=== PATIENT | male | born 1950 | race Caucasian/White ===

== ENCOUNTER 2019-12-19 09:49 | Outpatient (CLI) | payer OTHER, SELFPAY ==
--- NOTE | ~2019-12-19 | XR_ITS ---
EXAMINATION: XR lumbar spine 2-3V DATE: 12/19/2019 10:15 INDICATION: Low back pain. TECHNIQUE: 3 views of lumbar spine were obtained. COMPARISON: CT abdomen and pelvis 03/15/2009, lumbar spine radiographs 07/17/2015 FINDINGS: There is 4 degrees dextrocurvature of lumbar spine. There is mild chronic anterior wedging of T12 and L1 vertebral bodies, likely physiologic. Intervertebral disc heights are normal. There are endplate osteophytes at all levels. There is multilevel mild facet joint osteoarthritis. IMPRESSION: 1. Mild lumbar spondylosis. Reviewed, dictated and finalized at location A. IMPRESSION: 1. Mild lumbar spondylosis.
--- NOTE | ~2019-12-19 | XR_ITS ---
EXAMINATION: XR abdomen/kub 1V DATE: 12/19/2019 10:15 INDICATION: Left flank pain. TECHNIQUE: A supine view of the abdomen on 2 radiographs was obtained. COMPARISON: CT abdomen and pelvis 03/15/2009 FINDINGS: There are no dilated loops of bowel. The kidneys are obscured by bowel. A 6 mm calcificatio n overlies right kidney and colon. IMPRESSION: 1. 6 mm calcification overlying right kidney and colon that may be a kidney stone or colonic stool. Reviewed, dictated and finalized at location A. IMPRESSION: 1. 6 mm calcification overlying right kidney and colon that may be a kidney sto ne or colonic stool.
== END 2019-12-19 09:50 | disposition home or self-care (01) ==
LOC: ANHIMG 09:55
PROVIDERS: PCP Family Medicine; Visit Provider Nurse Practitioner Family
DX: R10.9 Unspecified abdominal pain (principal); M54.5 Low back pain; M47.816 Spondylosis without myelopathy or radiculopathy, lumbar region; R93.5 Abnormal findings on diagnostic imaging of other abdominal regions, including retroperitoneum
CPT/HCPCS: 72100; 74018

== ENCOUNTER 2022-04-22 09:54 | Outpatient (CLI) | payer OTHER, SELFPAY ==
--- NOTE | ~2022-04-22 | US_ITS ---
EXAMINATION: US venous doppler [facility] DATE: 04/22/2022 10:24 INDICATION: Left lower limb warmth and erythema TECHNIQUE: Grayscale ultrasound images without and with compression and Doppler ultrasound images of the left lower extremity veins were obtained. COMPARISON: None. FINDINGS: The visualized portions of left common femoral vein, profunda (deep) femoral vein, femoral vein, popl iteal vein, peroneal veins, posterior tibial veins, gastrocnemius vein and greater saphenous vein out flow are patent. IMPRESSION: 1. No deep venous thrombosis in the left lower limb. Reviewed, dictated and finalized at location A.
== END 2022-04-22 09:55 | disposition home or self-care (01) ==
PROVIDERS: PCP Family Medicine; Visit Provider Nurse Practitioner Family
DX: M79.89 Other specified soft tissue disorders (principal); R23.8 Other skin changes
CPT/HCPCS: 93971

== ENCOUNTER 2023-04-09 10:11 | Outpatient (CLI) | payer OTHER, SELFPAY ==
[2023-04-09 11:35] LABS: Basophils Percent Auto 0.7 % (0.2-1.2); Eosinophils Absolute Auto 0.2 K/mm3 (0-0.3); Eosinophils Percent Auto 3.6 % (0-4.4); Hematocrit 42.6 % (42.0-52.0); Hemoglobin 14.2 g/dL (14.0-18.0); Immature Granulocyte Absolute 0.04 K/mm3 (0.00-0.031); Immature Granulocyte Percent A 0.7 % (0-0.5); Lymphocytes Absolute Auto 1.14 K/mm3 (0.9-3.2); Lymphocytes Percent Auto 19.5 % (18.3-44.2); Mean Corpuscular HGB Conc 33.3 g/dl (32-36); Mean Corpuscular Hemoglobin 32.3 pg (26-34); Mean Corpuscular Volume 96.8 fl (80-100); Mean Platelet Volume 9.4 fl (7.4-10.4); Monocytes Absolute Auto 0.4 K/mm3 (0.1-0.6); Monocytes Percent Auto 7.3 % (2.6-8.5); Neutrophils Percent Auto 68.2 % (45.5-73.1); Platelet Count Result 204 k/mm3 (150-375); Red Cell Distribution Width 11.8 % (11.5-14.5); White Blood Count 5.9 K/mm3 (4.5-10.0)
[2023-04-09 11:56] LABS: Alanine Aminotransferase 54 U/L (6-50); Albumin Level 4.4 g/dL (3.5-5.1); Alkaline Phosphatase 35 U/L (38-126); Anion Gap 16 mmol/L (8-16); Aspartate Amino Transferase 66 U/L (17-59); Bilirubin,Total 0.7 mg/dL (0.2-1.3); Blood Urea Nitrogen 36 mg/dL (9-20); Calcium 10.6 mg/dL (8.4-10.2); Carbon Dioxide 31 mmol/L (22-30); Chloride 92 mmol/L (98-107); Cholesterol 164 mg/dL (0-200); Estimated Glomerular Filt Rate 27; Glucose 91 mg/dL (65-110); HDL Direct 29 mg/dL; Potassium 3.8 mmol/L (3.4-5.0); Sodium 139 mmol/L (137-145); Triglycerides 252 mg/dL (<150)
[2023-04-09 12:07] LABS: LDL Cholesterol Direct 88 mg/dL
[2023-04-09 12:29] LABS: Hemoglobin A1C 5.2 % (<5.7)
== END 2023-04-09 10:12 | disposition home or self-care (01) ==
LOC: ANHGOSHLAB 10:14
PROVIDERS: PCP Family Medicine; Visit Provider Nurse Practitioner Family
DX: E78.5 Hyperlipidemia, unspecified (principal); I10 Essential (primary) hypertension; Z13.29 Encounter for screening for other suspected endocrine disorder; N25.81 Secondary hyperparathyroidism of renal origin; Z12.5 Encounter for screening for malignant neoplasm of prostate
CPT/HCPCS: 36415; 80053; 80061; 83036; 84153; 84443; 85025; G0103

== ENCOUNTER 2023-04-10 15:06 | Outpatient (CLI) | payer OTHER, SELFPAY ==
[2023-04-10 18:59] LABS: Hepatitis B Surface Antigen Negative (Negative)
[2023-04-10 19:06] LABS: HAV RESULT Negative (Negative); Hepatitis B Core IgM Result Negative (Negative)
[2023-04-10 19:17] LABS: Hepatitis C Virus Antibody Negative (Negative)
== END 2023-04-10 15:07 | disposition home or self-care (01) ==
LOC: ANHGOSHLAB 15:07
PROVIDERS: PCP Family Medicine; Visit Provider Nurse Practitioner Family
DX: R74.8 Abnormal levels of other serum enzymes (principal)
CPT/HCPCS: 36415; 80074

== ENCOUNTER 2023-05-25 12:36 | Emergency (ER) | payer OTHER, SELFPAY ==
[2023-05-25 12:46] VITALS: BP 138/98; PULSE 74; RESP 16; TEMP 36.3; O2SAT 98
--- NOTE | 2023-05-25 12:59 | ED.DENTAL ---
HPI - Dental/Oral General Chief complaint: Dental/Oral Stated complaint: Inflammation in face Time Seen by Provider: 05/25/23 12:59 Source: patient, RN notes reviewed and old records reviewed Mode of arrival: ambulatory Limitations: no limitations History of Present Illness HPI Narrative: 72 year old male presents to [facility] care with complaints of left side of face swelling and pain to the left side of his nose into his left face since early this morning. Patient reports that he has dental problems for a long time with many missing and broken off teeth. Patient has redness and swelling to his left upper gum with redness, no drainage noted. Patient reports that he has taken Ibuprofen and also used Oragel to his upper left gum. Patient reports that his pain is 3/10. Patient states that his last episode of dental problems was 6-7 years ago. MD Complaint: tooth injury (dental pain) Onset (ago): day(s) (early this morning at 0200) Treatment prior to arrival: oral analgesic (Ibuprofen) and other (oragel) Related Data Home Medications Medication Instructions Recorded Confirmed aspirin 81 mg tablet,delayed 81 mg PO DAILY 07/18/19 05/25/23 release calcium carbonate 500 mg calcium 500 mg PO DAILY 07/18/19 05/25/23 (1,250 mg) chewable tablet (Calcium 500) cholecalciferol (vitamin D3) 50 2,000 unit PO DAILY 07/18/19 05/25/23 mcg (2,000 unit) tablet mecobalamin (vitamin B12) 1,000 1,000 mcg sublingual DAILY 07/18/19 05/25/23 mcg disintegrating tablet,sublingual fenofibrate 160 mg tablet 160 mg PO DAILY 04/09/23 05/25/23 hydrochlorothiazide 12.5 mg tablet 12.5 mg PO DAILY 04/09/23 05/25/23 Allergies Allergy/AdvReac Type Severity Reaction Status Date / Time latex Allergy Mild ITCHING,CAITLIN Verified 05/25/23 13:18 H Bumble Bee Allergy Severe Anaphylactic Uncoded 05/25/23 13:18 Shock Review of Systems Review of Systems: CONSTITUTIONAL: Denies fever, chills, or sweats. ENT: Denies rhinorrhea, congestion, sore throat, or otalgia. Reports dental pain to his left upper gum radiating to the left side of his face with some swelling. CARDIOVASCULAR: Denies chest pain, palpitations, or edema. RESPIRATORY: Denies cough or dyspnea. SKIN: Denies rash or itching. MUSCULOSKELETAL: Denies myalgia. NEUROLOGIC: Denies headache All systems reviewed & are unremarkable except as noted in HPI and below PMFSH Past Medical History Medical History (Updated 05/25/23 @ 13:16 by Tata Alcocer NP) Basal cell carcinoma (~03/2018) removed from calf CAD (coronary artery disease) CKD (chronic kidney disease) stage 3, GFR 30-59 ml/min COPD (chronic obstructive pulmonary disease) Former smoker Hyperlipidemia Hypertension Kidney stones Left flank pain Low Back Pain Normal colonoscopy [id number]? Patient reported. Dr unknown. Osteoarthritis of knees, bilateral Retinal embolus, right eye Vitamin D deficiency Surgical History Surgical History History of heart artery stent (~07/2016) x2 - 07/2016 and 08/2016 History of repair of left rotator cuff (~12/2018) History of repair of right rotator cuff 2000 Family History Family History Mother Hypertension Father Family history of lung cancer Other Family history of alcoholism Social History Social History Social History: Lives with . Has 3 children and 1 grandchild Caffeine-soda Smoking status: Former smoker Second hand tobacco smoke exposure: Yes Smoking end date: 08/24/78 Alcohol intake: current Drinks per week: 14 Alcohol use details: bourbon Substance use: never Substance use type: does not use Lack of Transportation: No Lack of Food: Never True Current Housing: I Have Housing Concerned About Future Housing: No Difficulty Paying Gas/Electric Bills: No Diffi
== END 2023-05-25 13:24 | disposition home or self-care (01) ==
PROVIDERS: Emergency Provider Registered Nurse; PCP Nurse Practitioner Family
DX: K04.7 Periapical abscess without sinus (principal); I25.10 Atherosclerotic heart disease of native coronary artery without angina pectoris; I12.9 Hypertensive chronic kidney disease with stage 1 through stage 4 chronic kidney disease, or unspecified chronic kidney disease; N18.30 Chronic kidney disease, stage 3 unspecified; E78.5 Hyperlipidemia, unspecified; J44.9 Chronic obstructive pulmonary disease, unspecified; Z79.82 Long term (current) use of aspirin; Z79.899 Other long term (current) drug therapy; Z87.891 Personal history of nicotine dependence
CPT/HCPCS: 99213; G0463

== ENCOUNTER 2025-03-10 00:53 | Day surgery (SDC) | payer OTHER, SELFPAY ==
[2025-02-28 08:41] VITALS: BMI 31.9
--- OUTSIDE RECORDS SUMMARY | 2025-03-10 00:56 | XMS_ITS | Clinical Summary ---
Author Organization [facility] Address [address] [place] [address] Care Team Providers Care Director Of Casework Name Role Phone Provider, None Primary Care Provider Unavailabl e Allergies Active Allergy Reactions Criticality Noted Date Comments Bee Venom Anaphylaxis High 05/07/2021 Reaction: ANAPHYLAXIS, Medications aspirin EC 81 MG Tablet Delayed Response Take 1 Tablet by mouth daily. 10/29/2016 Active atorvastatin (LIPITOR) 40 MG Tablet Take 40 mg by mouth daily. 08/21/2017 Active hydroCHLOROthia zide 12.5 MG Tablet 04/21/2021 Active cloNIDine (CATAPRES) 0.2 MG Tablet Take 0.2 mg by mouth. 07/15/2017 Active Cholecalciferol (D2000 Ultra Strength) 2000 UNIT Capsule Take 2,000 Units by mouth. Active diclofenac (VOLTAREN) 75 MG Tablet Delayed Response Take 75 mg by mouth. 04/21/2021 Active doxazosin (CARDURA) 1 MG Tablet Take 1 mg by mouth. 04/21/2021 Active fluticasone-trinity meterol (Advair Diskus) 250-50 MCG/ACT AEROSOL POWDER, BREATH ACTIVATED take 1 Puff by inhalation. 03/24/2021 Active folic acid (FOLVITE) 400 MCG Tablet Take 400 mcg by mouth. Active losartan (COZAAR) 50 MG Tablet Take 50 mg by mouth. 04/19/2021 Active verapamil CR (VERELAN) 240 MG CAPSULE SR 24 HR Take 240 mg by mouth. 04/19/2021 Active traMADol (ULTRAM) 50 MG TabletIndicatio ns:Dental infection Take 1 Tablet by mouth every 6 hours as needed for Moderate or more severe pain. 12 Tablet 06/04/2024 Active Social History Tobacco Use Types Packs/Day Years Used Date Smoking Tobacco: Former Cigarettes Passive Smoke Exposure: Never Smokeless Tobacco: Never Tobacco Cessation:Counseling Given: Not Answered Sex and Gender Information Value Date Recorded Sex Assigned at Not on file Legal Sex Male 2:38 PM CDT Gender Identity Not on file Sexual Orientation Not on file Last Filed Vital Signs Vital Sign Reading Time Taken Comments Blood Pressure 132/88 06/04/2024 2:52 PM CDT Pulse 99 06/04/2024 2:52 PM CDT Temperature 36.4 C (97.6 F) 06/04/2024 2:52 PM CDT Respiratory Rate 18 06/04/2024 2:52 PM CDT Oxygen Saturation 95% 06/04/2024 2:52 PM CDT Inhaled Oxygen Concentration - - Weight 109.8 kg (242 lb) 06/04/2024 2:52 PM CDT Height 188 cm (6' 2) 06/04/2024 2:52 PM CDT Body Mass Index 31.07 06/04/2024 2:52 PM CDT Plan of Treatment Health Maintenance Due Date Last Done Comments Hepatitis C Virus (HCV) Screening 1951 Cologuard 1996 Colonoscopy 1996 Colorectal Cancer Screening 1996 Immunochemical Fecal Occult Blood 1996 AAA Screening Ultrasound 2016 Zoster Immunization (3 of 3) 07/15/2024 05/20/2024, 08/05/2014 SARS-COV-2 Immunization ( season) 2024 05/20/2024, 05/12/2023, 05/02/2022, Additional history exists Influenza Immunization (#1) 04/24/202504/25, 05/12/2023, 05/02/2022, Additional history exists Pneumococcal Immunization (50+ years) Completed 06/17/2019, 05/17/2017 TdaP Immunization Completed 05/30/2021 Respiratory Syncytial Virus (RSV) Immunization (Adult) Completed 05/12/2023 Hepatitis B Immunization Aged Out No longer eligible based on patient's age to complete this topic Human Papillomavirus (HPV) Immunization Aged Out No longer eligible based on patient's age to complete this topic Meningococcal Immunization (ACWY) Aged Out No longer eligible based on patient's age to complete this topic Rotavirus Immunization Aged Out No lo nger eligible based on patient's age to complete this [place] [id number] MEDICARE CIG Care Teams Director Of Casework Relationship Specialty Start Date End Date Provider, None [place] PCP - General 06/04/24
--- OUTSIDE RECORDS SUMMARY | 2025-03-10 00:56 | XMS_ITS | Referral Summary ---
Author Organization [facility] [address] Address [address] [place] [address] Care Team Providers Care Cashier Credit Name Role Phone Violet Moeller MD Primary Care Provider Encounters Date Type Department Care Team Description 02/24/2025 12:30 PM CDT Office Visit [facility] at [address] [address] Anabell Briseno NP Rib pain on right side (Primary Dx); Accidental fall, initial encounter from Last 3 Months Allergies Active Allergy Reactions Criticality Noted Date Comments Bee Sting Kit Anaphylaxis High Reaction: ANAPHYLAXIS, Medications aspirin (ASPIR-81) 81 mg tablet take 1 tablet by oral route every day 0 0 7 Active doxazosin (CARDURA) 4 mg tablet take 1 tablet by oral route every day 0 0 7 Active verapamil SR (CALAN SR) 240 mg CR tablet take 1 tablet by oral route every day with food 0 0 7 Active losartan (COZAAR) 100 mg tablet take 1 tablet by oral route every day 0 0 7 Active cloNIDine (CATAPRES) 0.2 mg tablet Take 1 tablet (0.2 mg total) by mouth daily 2 7 Active nitroglycerin (NITROSTAT) 0.[address] 1 tablet (0.4 mg total) under the tongue every 5 (five) minutes as needed for chest pain Active DOCOSAHEXANOIC ACID/EPA (FISH OIL ORAL) Take 1 capsule by mouth daily. Active cholecalciferol (VITAMIN D-3) 2000 unit capsule Take 1 capsule (2,000 Units total) by mouth daily Active folic acid (FOLVITE) 400 mcg tablet Take 1 tablet (400 mcg total) by mouth daily Active atorvastatin (LIPITOR) 40 mg tablet Take 1 tablet (40 mg total) by mouth daily. 90 tablet 2 7 Active Additional Information Patient taking differently: 20 mgoral Daily, Reported on 02/24/[address] (VOLTAREN) 50 mg EC tablet Take 1 tablet (50 mg total) by mouth daily Active fluticasone propion-salmete roL (ADVAIR DISKUS) 250-50 mcg/dose diskus inhaler Inhale 1 puff 2 (two) times a day 1 Active hydroCHLOROthia zide (HYDRODIURIL) 12.5 mg tablet 2 Active methocarbamoL (ROBAXIN) 750 mg tablet Take 1 tablet (750 mg total) by mouth 3 (three) times a day as needed for muscle spasms for up to 5 days 15 tablet 5 03/01/20 25 Active Problems Problem Noted Date Diagnosed Date Hypertriglyceridemia 10/23/2017 Coronary artery disease invo lving [place] coronary artery of [place] heart without angina pectoris 08/03/2017 Essential hypertension 08/03/2017 Benign hypertension 10/29/2016 Overview (01/16/2017): HTN (hypertension), benign Presence of stent in coronary artery 10/29/2016 Overview (01/16/2017): H/O heart artery stent History of myocardial infarction 10/29/2016 Overview (01/16/2017): History of anterior wall myocardial infarction Resolved Problems Problem Noted Date Diagnosed Date Resolved Date Morbid obesity 10/23/2017 03/10/2024 Morbid obesity 10/29/2016 03/10/2024 Overview (01/16/2017): Morbid obesity due to excess calories Body mass index 40+ - severely obese 10/29/2016 03/10/2024 Overview (01/16/2017): Morbid obesity with BMI of 40.0-44.9, adult Social History Tobacco Use Types Packs/Day Years Used Date Smoking Tobacco: Former Cigarettes Smokeless Tobacco: Current Chew Tobacco Cessation:Ready to Q uit: Not Asked; Counseling Given: Not Answered Alcohol Use Standard Drinks/Week Comments Yes 0 (1 standard drink = 0.6 oz pur e alcohol) AUDIT-C Answer Date Recorded Q1: How often do you have a drink containing alcohol? 4 or more times a week 07/30/2021 Q2: How many drinks containi ng alcohol do you have on a typical day when you are drinking? 1 or 2 Q3: How often do you have si x or more drinks on one occasion? Never 07/30/2021 Sex and Gender Information Value Date Recorded Sex Assigned at Not on file Legal Sex Male 4:20 AM [place] Gender Identity Not on file Sexual Orientation Not on file Last Filed Vital Signs Vital Sign Reading Time Taken Comments Blood Pressure 134/87 02/24/2025 11:32 AM CDT Pulse 98 02/24/2025 11:32 AM CDT Temperature 36.7 C (98 F) 02/24/2025 11:32 AM CDT Respiratory Rate 22 02/24/2025 11:32 AM CDT Oxygen Saturation 97% 02/24/2025 11:32 AM CDT Inhaled Oxygen Concentration - - Weight 114.3 kg (252 lb) 02/24/2025 11:32 AM CDT Height 188 cm (6' 2) 10/27/2024 10:46 AM [place] Body Mass Index 32.35 10/27/2024 10:46 AM [place] Plan of Treatment Not on [place] [place] [address] [place] [address] [place] [address] [employer] OPEN ACCESS Care Teams Cashier Credit Relationship Specialty Start Date End Date Violet Moeller MD PCP - General Family Practice 07/30/21
--- OUTSIDE RECORDS SUMMARY | 2025-03-10 00:56 | XMS_ITS | Clinical Summary ---
Author Organization [facility] [address] Address [address] [place] [address] Care Team Providers Care Passenger Representative Name Role Phone Violet Moeller MD Primary Care Provider Allergies Active Allergy Reactions Criticality Noted Date [...] Hypertriglyceridemia 10/23/2017 Coronary artery disease invo lving [place] coronary artery of [place] heart without angina pectoris 08/03/2017 Essential hypertension [...] Morbid obesity with BMI of 40.0-44.9, adult Encounters Date Type Department Care Team Description 02/24/2025 12:30 PM CDT Office Visit [facility] at [address] [address] Briseno, Ranita, ROLL FORM OPERATOR Rib pain on right side (Primary Dx); Accidental fall, initial encounter from Last 3 Months Surgical History Surgery Date Site/Laterality Comments CORONARY ANGIOPLASTY Medical History Medical History Date Comments Hyperlipidemia Hypertriglyceridemia 10/23/2017 Morbid obesity (HCC) 10/23/2017 Arthritis Family History Medical History Relation Name Comments Heart attack Father Myocardial infa rction; Cause of : Myocardial infarction Other Mother Alive and well; Relation Name Status Comments Brother 1 Alive Brother 2 Alive Father (Age 68) Mother Alive Sister 1 Alive Sister 2 Alive Social History Tobacco Use Types Packs/Day Years [...] on file Legal 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 Gender Identity Not on file Sexual Orientation Not on file Obstetrics History Last Filed Vital Signs Vital Sign Reading [...] 188 cm (6' 2) 10/27/2024 10:46 AM FEATURES EDITOR Body Mass Index 32.35 10/27/2024 10:46 AM FEATURES EDITOR Plan of Treatment Health Maintenance Due Date Last Done Comments Colon Cancer Screening-Colonoscopy 1951 Depression Screening 1950 Fall Risk Assessment 1950 Hepatitis C Screening 1951 Hepatitis B Screening 1969 Zoster Vaccine (2 of 3) 09/30/2014 08/05/2014 Abdominal Aortic Aneurysm (A AA) Screen 2016 Well Visit 65+ 2016 Covid-19 Vaccine (2023-2 5 season) 2024 10/30/2021, 07/31/2021, 06/18/2021, Additional history exists Influenza Vaccine (#1) 2025 , 05/07/2021, 06/04/2020, Additional history exists DTaP/Tdap/Td Vaccine (2 - Td or Tdap) 05/30/2031 05/30/2021 Pneumococcal vaccine 65+ Completed 06/17/2019, 04/25 Insurance [employer] OPEN ACCESS [employer] OPEN ACCESS Care Teams Passenger Representative Relationship Specialty Start Date End Date Violet Moeller MD PCP - General Family Practice 07/30/21
--- OUTSIDE RECORDS SUMMARY | 2025-03-10 00:56 | XMS_ITS | Clinical Summary ---
Author Organization [facility] Address [address] [place] [id number] Phone Care Team Providers Care Bond Underwriter Name Role Phone Violet Moeller MD Primary Care Provider Allergies Active Allergy Reactions Criticality Noted Date Comments Bee Venom Anaphylaxis High 05/07/2021 Reaction: ANAPHYLAXIS, Latex Rash Low 05/07/2021 Medications aspirin (ST LUIS) 81 MG EC tablet 81 mg 10/29/2016 Active atorvastatin (LIPITOR) 20 MG tablet Take 20 mg by mouth every night 04/21/2021 Active Cholecalciferol 50 MCG (1999) capsule Take 2,000 Units by mouth daily Active cloNIDine (CATAPRES) 0.2 MG tablet Take 0.2 mg by mouth 2 (two) times a day 04/21/2021 Active diclofenac (VOLTAREN) 75 MG EC tablet Take 75 mg by mouth 2 (two) times a day 04/21/2021 Active doxazosin (CARDURA) 1 MG tablet Take 1 mg by mouth 1 (one) time each day 04/21/2021 Active Advair Diskus 250-50 MCG/DOSE diskus inhaler Inhale 1 puff 2 (two) times a day 03/24/2021 Active hydroCHLOROthiaz dereck (HYDRODIURIL) 12.5 MG tablet Take 12.5 mg by mouth 1 (one) time each day 04/21/2021 Active losartan (COZAAR) 50 MG tablet Take 50 mg by mouth 1 (one) time each day 04/19/2021 Active verapamil ER (VERELAN) 240 MG 24 hr capsule Take 240 mg by mouth 1 (one) time each day 04/19/2021 Active Active Problems Problem Noted Date Diagnosed Date Hypertriglyceridemia 10/23/2017 Essential hypertension 08/03/2017 Coronary atherosclerosis 08/03/2017 Disease type AND/OR category unknown 10/29/2016 Overview (05/07/2021): Morbid obesity with BMI of 40.0-44.9, adult History of myocardial infarction 10/29/2016 Overview (05/07/2021): History of anterior wall myocardial infarction Morbid obesity 10/29/2016 Overview (05/07/2021): Morbid obesity due to excess calories Stented coronary artery 10/29/2016 Overview (05/07/2021): H/O heart artery stent Immunizations Immunization Administration Dates Next Due Sars-cov-2, Unspecified 10/30/2021,07/31/2021,,12/29/2020 Family History Medical History Relation Comments Lung cancer Father Hypertension Mother Relation Status Comments Father Mother Social History Tobacco Use Types Packs/Day Years Used Date Smoking Tobacco: Former Smokeless Tobacco: Never Tobacco Cessation:Counseling Given: Not Answered Alcohol Use Standard Drinks/Week Comments Yes 2 (1 standard drink = 0.6 oz pur e alcohol) 2 drinks/day - whiskey Sex and Gender Information Value Date Recorded Sex Assigned at Not on file Legal Sex Male 11:13 AM MDT Gender Identity Not on file Sexual Orientation Not on file Last Filed Vital Signs Vital Sign Reading Time Taken Comments Blood Pressure 138/76 07/09/2022 9:25 AM GRANITE POLISHER MACHINE Pulse - - Temperature 35.2 C (95.4 F) 07/09/2022 9:25 AM GRANITE POLISHER MACHINE Respiratory Rate 18 07/09/2022 9:25 AM GRANITE POLISHER MACHINE Oxygen Saturation - - Inhaled Oxygen Concentration - - Weight 123 kg (271 lb) 07/09/2022 9:25 AM GRANITE POLISHER MACHINE Height 188 cm (6' 2) 07/09/2022 9:25 AM GRANITE POLISHER MACHINE Body Mass Index 34.79 07/09/2022 9:25 AM GRANITE POLISHER MACHINE Plan of Treatment Health Maintenance Due Date Last Done Comments Pneumococcal PPSV23/PCV13 65 + Years / Low and Medium Risk (1 of 2 - PCV) 2001 Influenza Vaccine (#1) 2025 Insurance [facility] Care Teams Bond Underwriter Relationship Specialty Start Date End Date Violet Moeller MD [address] [place] [address] PCP - General Internal Medicine 04/15/21
--- OUTSIDE RECORDS SUMMARY | 2025-03-10 00:56 | XMS_ITS | Clinical Summary ---
Author Organization [facility] Address [address] [place] [address] Care Team Providers Care Refinish Technician Name Role Phone Еелна Shipley MD Primary Care Provider [phone] Source Comments [facility],non-owned Affiliates and Associated Physician Practices is amultiple site organization consisting of ambulatory clinics and hospital sitesin [place], [place], [place] and [place]. This disclosure is being madepursuant to the Care Everywhere program and may not contain all information available regarding this patient. 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 Gender Identity Not on file Sexual Orientation Not on file Last Filed Vital Signs Vital Sign Reading Time Taken Comments Blood Pressure 210/124 06/15/2014 1:50 PM CDT Pulse 76 06/15/2014 1:29 PM CDT Temperature 36.8 C (98.3 F) 06/15/2014 1:29 PM CDT Respiratory Rate 16 06/15/2014 1:29 PM CDT Oxygen Saturation 96% 06/15/2014 1:29 PM CDT Inhaled Oxygen Concentration - - Weight 138.3 kg (305 lb) 06/15/2014 1:29 PM CDT Height 188 cm (6' 2) 06/15/2014 1:29 PM CDT Body Mass Index 39.16 06/15/2014 1:29 PM CDT Plan of Treatment Health Maintenance Due Date Last Done Comments COLOGUARD (AGES 45-75) - COL ON CA SCREENING 1950 COLON MONITORING 1950 COLONOSCOPY - COLON CA SCREENING 1951 CT COLONOGRAPHY - COLON CA SCREENING 1950 Colorectal Cancer Screening 1950 FIT - COLON CA SCREENING 1951 FLEX SIG - COLON CA SCREENING 1950 LIPID TESTING 1950 HEPATITIS C SCREENING 08/21/1969 DTAP/TDAP/TD VACCINES (1 - Tdap) 1970 PNEUMOCOCCAL VACCINE 50+ (1 of 1 - PCV) 2001 ZOSTER VACCINE (1 of 2) 2001 COVID-19 VACCINE (1 - 2023-2 5 season) 2024 DEPRESSION SCREENING 08/24/2024 INFLUENZA VACCINE (#1) 2025 Respiratory Syncytial Virus (RSV) Vaccine Pt: or over 60 yrs (1 - 1-dose 75+ series) 2026 HEPATITIS B VACCINE Aged Out No longe r eligible based on patient's age to complete this topic HIB VACCINE Aged Out No longer eligi ble based on patient's age to complete this topic HPV VACCINE Aged Out No longer eligi ble based on patient's age to complete this topic MENINGOCOCCAL (Group B) VACC INE SHARED DECISION-MAKING Aged Out No longer eligibl e based on patient's age to complete this topic MENINGOCOCCAL GROUPS A/C/Y/W VACCINE Aged Out No longer eligible b ased on patient's age to complete this topic Insurance Care Teams Refinish Technician Relationship Specialty Start Date End Date Елена Shipley MD PCP - General Family Medicine 06/15/14
[2025-03-10 08:45] VITALS: BP 131/82; PULSE 69; RESP 18; TEMP 36.4; O2SAT 97; BMI 32.1
--- NOTE | 2025-03-10 08:59 | P.PNAN_ITS ---
Anes - Initial Pre Proc Eval Procedure: Operation Date: 03/10/25 10:00 Proposed Procedures p Colonoscopy - Fab Salgado MD Date/Time: 03/10/25 08:59 Surgeon: Fab Salgado MD Pre Op Diagnosis: Other fecal abnormalities Patient Data Age: 74 Gender: M Height: 1.88 m Weight: 113.6 kg Last Vital Signs Temp 36.4 C L 03/10/25 08:45 Pulse 69 03/10/25 08:45 Resp 18 03/10/25 08:45 BP 131/82 03/10/25 08:45 Pulse Ox 97 03/10/25 08:45 O2 Del Method Room Air 03/10/25 08:45 Allergies Allergy/AdvReac Type Severity Reaction Status Date / Time latex Allergy Mild ITCHING,CAITLIN Verified 03/10/25 08:52 H bee venom protein (honey bee) AdvReac Severe Anaphylactic Verified 03/10/25 08:52 Shock Home Medications ?Medication ?Instructions ?Recorded ?Confirmed ?Type aspirin 81 mg tablet,delayed 81 mg PO DAILY 07/18/19 03/10/25 History release cholecalciferol (vitamin D3) 50 2,000 unit PO DAILY 07/18/19 03/10/25 History mcg (2,000 unit) tablet folic acid 800 mcg tablet 800 mcg PO DAILY 09/05/24 03/10/25 History clonidine HCl 0.2 mg tablet 0.2 mg PO QHS 10/13/24 03/10/25 History hydrochlorothiazide 12.5 mg tablet See Rx Instructions .Route 11/29/24 03/10/25 Rx .COMPLEX #90 tabs doxazosin 1 mg tablet 1 mg PO DAILY #90 tabs 01/30/25 03/10/25 Rx losartan 50 mg tablet 50 mg PO DAILY #90 tabs 01/30/25 03/10/25 Rx verapamil 240 mg 24 hr 240 mg PO DAILY #90 caps 01/30/25 03/10/25 Rx capsule,extended release atorvastatin 20 mg tablet 20 mg PO QHS #90 tabs 02/14/25 03/10/25 Rx diclofenac sodium 75 mg 75 mg PO BID #180 tabs 02/21/25 03/10/25 Rx tablet,delayed release Patient hx anesthesia problems: none Family hx anesthesia problems: none Results Review: All pre-operative results and documents have been reviewed as part of the pre- operative evaluation. [facility] Past Medical History Medical History Stage 3a chronic kidney disease Former smoker Vitamin D deficiency CAD (coronary artery disease) Retinal embolus, right eye Basal cell carcinoma (~03/2018) removed from calf Osteoarthritis of knees, bilateral Kidney stones Hyperlipidemia Hypertension Surgical History Surgical History History of repair of right rotator cuff 2000 History of heart artery stent (~07/2016) x2 - 07/2016 and 08/2016 History of repair of left rotator cuff (~12/2018) Family History Family History Mother Hypertension Father Family history of lung cancer Other Family history of alcoholism Social History Social History Social History: Lives with . Has 3 children and 1 grandchild Caffeine-soda Smoking packs per day: 1.5 Smoking cigarettes per day: 30.0 Years smoked: 3 Smoking pack-years: 4.50 Smoking status: Former smoker Tobacco type: cigarettes Smokeless tobacco user: chewing tobacco Second hand tobacco smoke exposure: Yes Smoking end date: 08/24/78 Additional smoking assessment comments: QUIT SMOKING, DOES CHEW TOBACCO Alcohol intake: current Drinks per week: 5 Alcohol use details: HARD LIQUOR, TWO DAILY Substance use: never Substance use type: does not use Do You Feel Safe in your Home?: Yes Lack of Transportation: No Lack of Food: Never True Current Housing: I Have Housing Concerned About Future Housing: No Difficulty Paying Gas/Electric Bills: No Difficulty Paying for Meds: No Currently Unemployed: No Education: Bachelor's Degree Difficulty w/ Childcare or Family Care: No Living arrangements: with family Occupation/Education: occupation Gender identity (if verbalized by the patient): Male Sexual Orientation (if Verbalized by the Patient): Straight or Heterosexual Spiritual care concerns: No Agree to blood products: Yes Anes - Eval Final PreProcedure Day of Procedure 03/10/25 08:59 Patient weight: obese Heart: regular rate and rhythm Lungs: clear to auscultation Airway: Mallampati scale class III Neurological: alert and oriented Last oral intake: >/= 8 hours ASA classification: III Emergent: no Anesthetic plan: proceed Anesthesia type and monitoring: general GIVS and standard monitoring Results Review: All pre-operative results and documents have been reviewed as part of the pre- operative evaluation. Informed Consent: The patient's anesthetic plan and its attendant risks and benefits were discussed with the patient/family/POA. Questions were solicited and answers provided to the satisfaction of the patient/family/POA.
[2025-03-10] MEDS: LACTATED RINGERS 1,000 ML 150 ML IV CONT (09:01)
--- NOTE | 2025-03-10 09:46 | PM.IMHP ---
H&P: HPI History of Present Illness Date/Time: 03/10/25 09:46 Chief Complaint: Screening colonoscopy Narrative: This is the patient's 2nd or 3rd colonoscopy. There are no GI symptoms and there is no family history of colorectal cancer. he had a recently positive Cologuard test. Review of Systems Review of Systems: All systems reviewed & are unremarkable except as noted in HPI and below PMFSH Past Medical History Medical History Stage 3a chronic kidney disease Former smoker Vitamin D deficiency CAD (coronary artery disease) Retinal embolus, right eye Basal cell carcinoma (~03/2018) removed from calf Osteoarthritis of knees, bilateral Kidney stones Hyperlipidemia Hypertension Surgical History Surgical History History of repair of right rotator cuff 2000 History of heart artery stent (~07/2016) x2 - 07/2016 and 08/2016 History of repair of left rotator cuff (~12/2018) Family History Family History Mother Hypertension Father Family history of lung cancer Other Family history of alcoholism Social History Social History Social History: Lives with . Has 3 children and 1 grandchild Caffeine-soda Smoking packs per day: 1.5 Smoking cigarettes per day: 30.0 Years smoked: 3 Smoking pack-years: 4.50 Smoking status: Former smoker Tobacco type: cigarettes Smokeless tobacco user: chewing tobacco Second hand tobacco smoke exposure: Yes Smoking end date: 08/24/78 Additional smoking assessment comments: QUIT SMOKING, DOES CHEW TOBACCO Alcohol intake: current Drinks per week: 5 Alcohol use details: HARD LIQUOR, TWO DAILY Substance use: never Substance use type: does not use Do You Feel Safe in your Home?: Yes Lack of Transportation: No Lack of Food: Never True Current Housing: I Have Housing Concerned About Future Housing: No Difficulty Paying Gas/Electric Bills: No Difficulty Paying for Meds: No Currently Unemployed: No Education: Bachelor's Degree Difficulty w/ Childcare or Family Care: No Living arrangements: with family Occupation/Education: occupation Gender identity (if verbalized by the patient): Male Sexual Orientation (if Verbalized by the Patient): Straight or Heterosexual Spiritual care concerns: No Agree to blood products: Yes Meds Home Medications and Allergies Home Medications ?Medication ?Instructions ?Recorded ?Confirmed ?Type aspirin 81 mg tablet,delayed 81 mg PO DAILY 07/18/19 03/10/25 History release cholecalciferol (vitamin D3) 50 2,000 unit PO DAILY 07/18/19 03/10/25 History mcg (2,000 unit) tablet folic acid 800 mcg tablet 800 mcg PO DAILY 09/05/24 03/10/25 History clonidine HCl 0.2 mg tablet 0.2 mg PO QHS 10/13/24 03/10/25 History hydrochlorothiazide 12.5 mg tablet See Rx Instructions .Route 11/29/24 03/10/25 Rx .COMPLEX #90 tabs doxazosin 1 mg tablet 1 mg PO DAILY #90 tabs 01/30/25 03/10/25 Rx losartan 50 mg tablet 50 mg PO DAILY #90 tabs 01/30/25 03/10/25 Rx verapamil 240 mg 24 hr 240 mg PO DAILY #90 caps 01/30/25 03/10/25 Rx capsule,extended release atorvastatin 20 mg tablet 20 mg PO QHS #90 tabs 02/14/25 03/10/25 Rx diclofenac sodium 75 mg 75 mg PO BID #180 tabs 02/21/25 03/10/25 Rx tablet,delayed release Allergies Allergy/AdvReac Type Severity Reaction Status Date / Time latex Allergy Mild ITCHING,CAITLIN Verified 03/10/25 08:52 H bee venom protein (honey bee) AdvReac Severe Anaphylactic Verified 03/10/25 08:52 Shock Vital Signs Vital Signs - 24 hr 03/10/25 08:45 Temperature 97.5 F L Pulse Rate 69 Respiratory Rate 18 Blood Pressure 131/82 Pulse Oximetry 97 Oxygen Delivery Room Air Exam Const: General: cooperative and healthy appearing Resp: Effort & Inspection: normal respiratory effort and able to speak in complete sentences Auscultation: clear to auscultation bilaterally Cardio: Rate: regular rate Rhythm: regular rhythm GI: Inspection: normal to inspection GI Palp: No No hepatosplenomegaly present Auscultation: normal bowel sounds Rectal Exam: deferred Skin: General skin exam: normal color Psych: Appearance: grossly normal Mental Status: mental status grossly normal Assessment and Plan Assessment and plan (1) Positive colorectal cancer screening using Cologuard test: Code(s): R19.5 - Other fecal abnormalities Status: Acute Assessment and Plan: The patient is deemed a good candidate for the procedure. Consent signed. Will proceed.
[2025-03-10 10:11] VITALS: BP 108/72; PULSE 47; RESP 22; O2SAT 98
[2025-03-10 10:21] VITALS: BP 121/82; PULSE 60; RESP 18; O2SAT 96
[2025-03-10 10:31] VITALS: BP 126/81; PULSE 53; RESP 16; O2SAT 97
== END 2025-03-10 10:48 | disposition home or self-care (01) ==
PROVIDERS: PCP Family Medicine; Referring Provider Family Medicine; Visit Provider Internal Medicine Gastroenterology
PROC: 0DJD8ZZ Inspection of Lower Intestinal Tract, Via Natural or Artificial Opening Endoscopic (ICD-10-PCS; CPT 45378; principal; 2025-03-10 10:00)
DX: Z12.11 Encounter for screening for malignant neoplasm of colon (principal); K57.30 Diverticulosis of large intestine without perforation or abscess without bleeding; R19.5 Other fecal abnormalities; F17.220 Nicotine dependence, chewing tobacco, uncomplicated; E66.9 Obesity, unspecified; Z68.32 Body mass index [BMI] 32.0-32.9, adult
CPT/HCPCS: 45378; J2003; J2704; J7120